=== PATIENT | male | born 1945 | race Caucasian/White ===

== ENCOUNTER 2019-01-02 07:53 | Day surgery (SDC) | payer MEDICARE, OTHER ==
[~2019-01-02] VITALS: Ht 182.9 cm; Wt 67.8 kg
[2019-01-02] MEDS ORDERED: LACTATED RINGERS 1,000 ML IV SCH (08:28)
[2019-01-02] MEDS ORDERED: PLEASE ENTER ALLERGIES MC SCH (08:30)
[2019-01-02] MEDS ORDERED: LIDOCAINE-MPF 1%, 2ML INFIL ONE (08:30)
[2019-01-02] MEDS ORDERED: ONDANSETRON 2MG/ML, 2ML IV PRN (08:30)
[2019-01-02] MEDS ORDERED: PLEASE ENTER HEIGHT AND WEIGHT MC SCH (08:30)
[2019-01-02 08:31] VITALS: BP 89/59
[2019-01-02 08:50] LABS: BASOPHILS # (AUTO) 0.03 x10^3/uL (0-0.1); BASOPHILS % (AUTO) 1 % (0-1); EOSINOPHILS # (AUTO) 0.14 x10^3/uL (0-0.4); EOSINOPHILS % (AUTO) 3 % (1-7); LYMPHOCYTES # (AUTO) 1.84 x10^3/uL (1-3.4); LYMPHOCYTES % (AUTO) 34 % (22-44); MD NO; MEAN CORPUSCULAR HEMOGLOBIN 30.3 pg (27.5-34.5); MEAN CORPUSCULAR HGB CONC 32.4 g/dL (33.2-36.2); MEAN CORPUSCULAR VOLUME 93.6 fL (81-97); MEAN PLATELET VOLUME 7.6 fL (7.4-10.4); MONOCYTES % (AUTO) 7 % (2-9); NEUTROPHILS # (AUTO) 3.08 x10^3/uL (1.8-6.8); NEUTROPHILS % (AUTO) 56 % (42-75); PLATELET COUNT 322 x10^3/uL (130-400); RED BLOOD COUNT 4.24 x10^6/uL (4.38-5.82)
[2019-01-02 08:58] LABS: ALANINE AMINOTRANSFERASE 20 U/L (12-78); ALBUMIN 2.8 g/dL (3.4-5.0); ANION GAP 6 mmol/L (5-15); CALCIUM 8.8 mg/dL (8.5-10.1); CHLORIDE 108 mmol/L (98-107); CREATININE 0.77 mg/dL (0.7-1.3)
[2019-01-02 09:00] LABS: ALKALINE PHOSPHATASE 62 U/L (45-117); BILIRUBIN,TOTAL 0.3 mg/dL (0.2-1.0); TOTAL PROTEIN 6.4 g/dL (6.4-8.2)
[2019-01-02] MEDS ORDERED: PROPOFOL 100 ML ONE (09:31)
[2019-01-02] MEDS ORDERED: FENTANYL PF 100 MCG/2ML ONE (10:46)
[2019-01-02] MEDS: FENTANYL PF 100 MCG/2ML IV PRN ×3 (10:48→11:05)
[2019-01-02] MEDS ORDERED: ONDANSETRON 2MG/ML, 2ML ONE (10:55)
[2019-01-02] MEDS ORDERED: HYDROmorphone 2 MG/ML, 1ML ONE (11:28)
[2019-01-02] MEDS ORDERED: HYDROmorphone 1 MG/ML, 1ML INJ IV PRN (11:30)
[2019-01-02] MEDS ORDERED: OXYcodone 5 MG/5 ML ORAL.SOL UDC PO PRN (14:00)
== END 2019-01-02 15:10 | disposition home or self-care (01) ==
LOC: OUT 07:53
PROVIDERS: ATTEND Internal Medicine Geriatric Medicine
DX: C15.5 Malignant neoplasm of lower third of esophagus (principal); K57.30 Diverticulosis of large intestine without perforation or abscess without bleeding
CPT/HCPCS: 36415; 43266; 71045; 76000; 80053; 85025; 93005; C1769; C1876; J1170; J2405; J2704; J3010

== ENCOUNTER 2019-01-16 08:12 | Day surgery (SDC) | payer MEDICARE, OTHER ==
[~2019-01-16] VITALS: Ht 182.9 cm; Wt 66.3 kg
[2019-01-16 09:13] VITALS: BP 104/66
== END 2019-01-16 12:40 | disposition home or self-care (01) ==
LOC: OUT 08:12
PROVIDERS: ATTEND Specialist
DX: C22.8 Malignant neoplasm of liver, primary, unspecified as to type (principal); C78.89 Secondary malignant neoplasm of other digestive organs; Z79.01 Long term (current) use of anticoagulants; Z87.891 Personal history of nicotine dependence; Z72.89 Other problems related to lifestyle
CPT/HCPCS: 36415; 47000; 77012; 85610; 88307; 99156; 99157; J2250; J3010; J7030; 88360; 88361; 88377; J2310

== ENCOUNTER 2019-05-02 15:37 | Observation (INO) | payer MEDICARE, OTHER ==
[~2019-05-02] VITALS: Ht 182.9 cm; Wt 59.0 kg
--- NOTE | 2019-05-02 16:00 | NUR ---
PT HAVING ABD PAIN/REFLUX SINCE TUESDAY, STATES HIS MD SENT HIM HERE. PT STATES "I THINK MY STENT HAS MOVED". NO C/O CP, SOB ERMD IN TO [facility] PT, ORDERS RECIEVED
[2019-05-02] MEDS ORDERED: SODIUM CHLORIDE 0.9% 1,000 ML IV ONE (16:05)
[2019-05-02] MEDS ORDERED: SODIUM CHLORIDE FLUSH 10ML SYR IVF ONE (16:30)
--- NOTE | 2019-05-02 16:48 | NUR ---
dr alonso spoke with dr benjamin
--- NOTE | 2019-05-02 16:51 | NUR ---
PT UPSET STATES HE IS WANTING TO LEAVE, UPDATED, MD IN TO SPEAK WITH PT. PT NOW AGREEABLE TO BEING ADMITTED. PORT ACCESSED AND LABS DRAWN. PT TO BP, CONT PULSE OX
[2019-05-02] MEDS ORDERED: LORazepam 2 MG/ML, 1ML IVPush ONE (17:00)
[2019-05-02] MEDS ORDERED: NICOTINE 14MG/24 HR PATCH.TD24 TD ONE (17:00)
[2019-05-02 17:01] LABS: BASOPHILS # (AUTO) 0.02 x10^3/uL (0-0.1); BASOPHILS % (AUTO) 1 % (0-1); EOSINOPHILS # (AUTO) 0.05 x10^3/uL (0-0.4); EOSINOPHILS % (AUTO) 2 % (1-7); LYMPHOCYTES # (AUTO) 0.64 x10^3/uL (1-3.4); LYMPHOCYTES % (AUTO) 21 % (22-44); MD NO; MEAN CORPUSCULAR HEMOGLOBIN 31.1 pg (27.5-34.5); MEAN CORPUSCULAR HGB CONC 31.7 g/dL (33.2-36.2); MEAN CORPUSCULAR VOLUME 98.1 fL (81-97); MONOCYTES # (AUTO) 0.11 x10^3/uL (0.2-0.8); MONOCYTES % (AUTO) 4 % (2-9); NEUTROPHILS # (AUTO) 2.26 x10^3/uL (1.8-6.8); NEUTROPHILS % (AUTO) 73 % (42-75); PLATELET COUNT 338 x10^3/uL (130-400); RED BLOOD COUNT 3.56 x10^6/uL (4.38-5.82); RED CELL DISTRIBUTION WIDTH 21.9 % (9.4-14.8)
[2019-05-02 17:06] LABS: INTERNATIONAL NORMALIZED RATIO 0.97 (0.93-1.1); PROTHROMBIN TIME 10.2 Seconds (9.6-11.5)
[2019-05-02 17:08] LABS: ALANINE AMINOTRANSFERASE 16 U/L (12-78); ALBUMIN 2.6 g/dL (3.4-5.0); ANION GAP 5 mmol/L (5-15); CALCIUM 8.2 mg/dL (8.5-10.1); CHLORIDE 110 mmol/L (98-107); CREATININE 0.46 mg/dL (0.7-1.3)
[2019-05-02 17:11] LABS: ALKALINE PHOSPHATASE 54 U/L (45-117); BILIRUBIN,TOTAL 0.3 mg/dL (0.2-1.0); TOTAL PROTEIN 6.4 g/dL (6.4-8.2)
[2019-05-02] MEDS ORDERED: NICOTINE 14MG/24 HR PATCH.TD24 ONE (17:11)
[2019-05-02] MEDS ORDERED: LORazepam 2 MG/ML, 1ML ONE (17:12)
[2019-05-02] MEDS ORDERED: CYCLOBENZAPRINE 10 MG TABLET PO PRN (17:30)
[2019-05-02] MEDS ORDERED: ACETAMINOPHEN 325 MG TABLET PO PRN (17:30)
[2019-05-02] MEDS ORDERED: TRAZODONE 50MG TABLET PO PRN (17:30)
[2019-05-02] MEDS ORDERED: ONDANSETRON ODT 4 MG PO PRN (17:30)
[2019-05-02] MEDS ORDERED: MORPHINE SULFATE 4 MG/ML, 1ML IVPush PRN (17:30)
[2019-05-02] MEDS ORDERED: BUTALB/APAP/CAFFEINE 50MG/325MG/40MG PO PRN (17:30)
[2019-05-02] MEDS ORDERED: NICOTINE 21 MG/24 HR PATCH.TD24 TD SCH (17:30)
[2019-05-02] MEDS ORDERED: GUAIFENESIN/DM 200-20MG, 10ML UDC PO PRN (17:30)
[2019-05-02] MEDS ORDERED: POLYETHYLENE GLYCOL 17 GM PACKET PO PRN (17:30)
[2019-05-02] MEDS ORDERED: LORazepam 2 MG/ML, 1ML IVPush PRN (17:30)
[2019-05-02] MEDS ORDERED: ONDANSETRON 2MG/ML, 2ML IVPush PRN (17:30)
--- NOTE | 2019-05-02 17:53 | NUR ---
PT RESTING ON GURNEY, AT BEDSIDE, PT CALM S/P MED ADMINISTRATION, AWAITING BED PLACEMENT
--- NOTE | 2019-05-02 18:45 | NUR ---
ATTEMPTED TO CALL REPORT, RN TO CALL BACK
--- NOTE | 2019-05-02 19:10 | NUR ---
attempted to call report, no answer at this time
[2019-05-02 19:53] VITALS: BP 135/75
[2019-05-02] MEDS: D5%-0.45% NACL 1,000 ML IV SCH (22:26)
[2019-05-02] MEDS: ENOXAPARIN 30 MG/0.3 ML SQ SCH (22:26)
[2019-05-03 01:10] LABS: CLOSTRIDIUM DIFFICILE ANTIGEN NEGATIVE; CLOSTRIDIUM DIFFICILE TOXIN NEGATIVE (Negative)
[2019-05-03 03:43] VITALS: BP 138/79
[2019-05-03] MEDS: D5%-0.45% NACL 1,000 ML IV SCH (06:29)
[2019-05-03 06:44] LABS: MEAN CORPUSCULAR HEMOGLOBIN 31.2 pg (27.5-34.5); MEAN CORPUSCULAR HGB CONC 32.3 g/dL (33.2-36.2); MEAN CORPUSCULAR VOLUME 96.8 fL (81-97); MEAN PLATELET VOLUME 7.1 fL (7.4-10.4); PLATELET COUNT 295 x10^3/uL (130-400); RED BLOOD COUNT 3.18 x10^6/uL (4.38-5.82); RED CELL DISTRIBUTION WIDTH 21.6 % (9.4-14.8)
[2019-05-03 06:48] LABS: ANION GAP 3 mmol/L (5-15); CALCIUM 7.8 mg/dL (8.5-10.1); CHLORIDE 113 mmol/L (98-107); CREATININE 0.54 mg/dL (0.7-1.3)
[2019-05-03 07:22] LABS: BASOPHILS # (AUTO) 0.02 x10^3/uL (0-0.1); BASOPHILS % (AUTO) 1 % (0-1); EOSINOPHILS # (AUTO) 0.01 x10^3/uL (0-0.4); EOSINOPHILS % (AUTO) 0 % (1-7); LYMPHOCYTES # (AUTO) 1.21 x10^3/uL (1-3.4); LYMPHOCYTES % (AUTO) 32 % (22-44); MD SCAN; MONOCYTES # (AUTO) 0.48 x10^3/uL (0.2-0.8); MONOCYTES % (AUTO) 13 % (2-9); NEUTROPHILS # (AUTO) 2.04 x10^3/uL (1.8-6.8); NEUTROPHILS % (AUTO) 54 % (42-75)
[2019-05-03 07:23] VITALS: BP 128/75
[2019-05-03] MEDS: ENOXAPARIN 30 MG/0.3 ML SQ SCH (09:00)
[2019-05-03 12:54] VITALS: BP 157/68
[2019-05-03] MEDS ORDERED: FENTANYL PF 100 MCG/2ML ONE ×2 (14:28→15:57)
[2019-05-03] MEDS ORDERED: EPHEDRINE 50 MG/ML, 1ML IVPush PRN (14:30)
[2019-05-03] MEDS ORDERED: ONDANSETRON 2MG/ML, 2ML IV PRN (14:30)
[2019-05-03] MEDS ORDERED: PROMETHAZINE 25 MG/ML, 1ML IV PRN (14:30)
[2019-05-03] MEDS ORDERED: LABETALOL 5MG/ML, 20ML IV PRN (14:30)
[2019-05-03] MEDS ORDERED: HYDROmorphone 2 MG/ML, 1ML IVPush PRN (14:30)
[2019-05-03] MEDS ORDERED: HYDROcodone/APAP 7.5-325MG/15ML UDC PO PRN (14:30)
[2019-05-03] MEDS ORDERED: hydrALAzine 20 MG/ML, 1ML IV PRN (14:30)
[2019-05-03] MEDS ORDERED: MEPERIDINE/PF 25MG/ML,1ML IVPush PRN (14:30)
[2019-05-03] MEDS ORDERED: ONDANSETRON 2MG/ML, 2ML ONE (14:40)
[2019-05-03] MEDS ORDERED: SUCCINYLCHOLINE 20 MG/ML, 10ML ONE (14:40)
[2019-05-03] MEDS ORDERED: PROPOFOL 10 MG/ML, 20ML ONE (14:40)
[2019-05-03] MEDS ORDERED: DEXAMETHASONE 4 MG/ML, 1ML ONE (14:49)
[2019-05-03] MEDS ORDERED: ACETAMINOPHEN 650 MG/20.3 ML UDC ONE (15:57)
[2019-05-03] MEDS: FENTANYL PF 100 MCG/2ML IV PRN ×2 (16:00→16:10)
[2019-05-03 16:37] VITALS: BP 140/80
== END 2019-05-03 18:30 | disposition left against medical advice (07) ==
LOC: ED 16:47 → EDIP 16:48 → INTOOBSV 16:48 → ED 18:19 → 3N 19:34 → 4NW 05-03 16:34
PROVIDERS: ADMIT Family Medicine; ATTEND Internal Medicine
DX: C15.9 Malignant neoplasm of esophagus, unspecified (principal); E46 Unspecified protein-calorie malnutrition; E83.51 Hypocalcemia; E16.2 Hypoglycemia, unspecified; D64.9 Anemia, unspecified; F17.200 Nicotine dependence, unspecified, uncomplicated
CPT/HCPCS: 36415; 43247; 43266; 71045; 74220; 76000; 80048; 80053; 83690; 83735; 85025; 85610; 87324; 96372; 96374; 97163; 99284; C1769; C1874; G0378; J0330; J1100; J1650; J2060; J2405; J2704; J3010; J7030

== ENCOUNTER 2019-07-04 11:47 | Outpatient (CLI) | payer MEDICARE, OTHER | END 2019-07-04 23:59 | disposition home or self-care (01) | LOC: RAD 11:47 | PROVIDERS: ATTEND Internal Medicine | DX: C15.5 Malignant neoplasm of lower third of esophagus (principal); Z96.89 Presence of other specified functional implants | CPT/HCPCS: 74220 ==